=== PATIENT | male | born 1980 | race Two or more races ===

== ENCOUNTER 2020-10-01 08:36 | Emergency (ER) | payer SELFPAY ==
[~2020-10-01] VITALS: Ht 172.7 cm; Wt 95.3 kg
[2020-10-01 08:48] VITALS: BP 149/95
[2020-10-01] MEDS ORDERED: TETANUS-DIPTH-ACEL PERTUSSIS 0.5ML SYR Tdap IM ONE (09:00)
[2020-10-01] MEDS ORDERED: HYDROcodone-ACET 5/325MG TAB PO ONE (09:00)
[2020-10-01] MEDS ORDERED: cefTRIAXone SOD 1,000 MG VL IM ONE (09:00)
== END 2020-10-01 10:53 | disposition home or self-care (01) ==
LOC: ER 08:36
DX: S81.812A Laceration without foreign body, left lower leg, initial encounter (principal); W54.0XXA Bitten by dog, initial encounter; Y93.89 Activity, other specified; Y92.89 Other specified places as the place of occurrence of the external cause; Y99.8 Other external cause status
CPT/HCPCS: 12004; 73600; 90471; 90715; 96372; 99284; J0696

== ENCOUNTER 2022-11-05 15:12 | Emergency (ER) | payer OTHER ==
[~2022-11-05] VITALS: Ht 172.7 cm; Wt 101.6 kg
[2022-11-05 16:06] VITALS: BP 108/79; PULSE 80; RESP 18; TEMP 97.9; O2SAT 100
[2022-11-05] MEDS ORDERED: IBUP-1456 PO (16:57)
== END 2022-11-05 17:09 | disposition home or self-care (01) ==
LOC: ER 15:12
DX: S63.502A Unspecified sprain of left wrist, initial encounter (principal); W18.39XA Other fall on same level, initial encounter; Y93.89 Activity, other specified; Y92.89 Other specified places as the place of occurrence of the external cause; Y99.8 Other external cause status
CPT/HCPCS: 29125; 73110